=== PATIENT | female | born 1950 | race Caucasian/White ===

== ENCOUNTER 2016-07-06 05:44 | Inpatient (IN) ==
--- NOTE | 2016-06-26 14:30 | EKG Report ---
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
--- NOTE | 2016-06-26 14:31 | XRay Report ---
XR chest 2V Indication: Respiratory preoperative evaluation Comparison: One June 2015 Findings: The heart and mediastinum are normal in size and configuration. The pulmonary vascularity is normal in caliber. No lung infiltrates, effusions, pneumothorax or other abnormality is demonstrated. Polypoid densities project over the gastric air bubble. Impression: No acute findings or significant changes. PROCEDURE INTERPRETED AT [facility] DEPARTMENT OF RADIOLOGY Final Report Signed by: Dr. Eros Black
[2016-06-26 14:54] LABS: Basophils # 0.1 10*3/uL (0.0-0.2); Basophils % 0.6 % (0.0-0.8); Eosinophils # 0.2 10*3/uL (0.0-0.87); Eosinophils % 2.1 % (0.00-10.9); Hematocrit 37.3 VOL% (35.7-47.0); Hemoglobin 12.4 GM/DL (12.0-16.0); Immature Granulocytes % 0.2 %; Immature Granulocytes Absolute 0.02 #; Lymphocytes # 1.6 10*3/uL (1.4-4.0); Lymphocytes % 19.3 % (21.3-54.2); Mean Corpuscular HGB Conc 33.2 GM/DL (32-36); Mean Corpuscular Hemoglobin 27 PG (27-34); Mean Corpuscular Volume 80.9 FL (87-102); Mean Platelet Volume 9.9 FL (9.6-12.0); Monocytes # 0.7 10*3/uL (0.11-0.8); Monocytes % 8.6 % (1.7-12.7); Neutrophils # 5.6 10*3/uL (1.4-7.4); Neutrophils % 69.2 % (38.7-73.9); Platelet Count 348 T/CUMM (130-400); Red Blood Count 4.61 MC/CUMM (3.8-5.5); Red Cell Distribution Width 13.9 % (9.3-17.3); White Blood Count 8.1 T/CUMM (4-12)
[2016-06-26 15:03] LABS: Apearance,Urine Slightly Hazy (Clear); Bacteria,Urine Occasional /HPF (Few); Bilirubin,Urine Negative (Negative); Blood, Urine Negative (Negative); Glucose,Urine (UA) Negative (Negative); Ketones,Urine Negative (Negative); Nitrite,Urine Negative (Negative); Protein,Urine Negative; RBC,Urine <1 /HPF (0-4); Squamous Epithelial Cell,Urine Occasional /HPF (0-10); Urine Color Yellow (Yellow); Urine Specific Gravity 1.008 (1.001-1.035); Urine Urobilinogen < 2.0 EU/DL (0.2-1.0); WBC,Urine 1 /HPF (0-6)
[2016-06-26 15:04] LABS: PT Patient Result 10.8 SECS; Partial Thromboplastin Time 35.5 SECS (0-40)
[2016-06-26 15:09] LABS: Alanine Aminotransferase 19 U/L (13-56); Albumin 3.6 G/DL (3.4-5.0); Alkaline Phosphatase 132 U/L (45-117); Aspartate Amino Transferase 20 U/L (0-37); Bilirubin,Total < 0.39 MG/DL (0.2-1.0); Blood Urea Nitrogen 21 MG/DL (7-18); Glucose 109 MG/DL (74-106); Osmolality,Calculated 278.7 MOS/KG (273-304); Potassium 3.9 MMOL/L (3.5-5.1); Sodium 138 MMOL/L (136-145); Total Protein 7.4 G/DL (6.4-8.3)
[2016-07-06] MEDS ORDERED: VANCOMYCIN INJ 1,000 MG in SODIUM CHLORIDE 0.9% 250 ML IV ONE (06:00)
[2016-07-06] MEDS ORDERED: LORazepam 1 MG TABLET PO ONE (06:00)
[2016-07-06] MEDS ORDERED: FAMOTIDINE 20 MG TABLET PO ONE (06:00)
[2016-07-06] MEDS ORDERED: FAMOTIDINE 20 MG TABLET ONE (06:22)
[2016-07-06] MEDS ORDERED: LORazepam 1 MG TABLET ONE (06:22)
[2016-07-06] MEDS ORDERED: VANCOMYCIN 1,000 MG VIAL ONE ×2 (06:33→08:01)
[2016-07-06] MEDS ORDERED: ceFAZolin 1,000 MG VIAL ONE (06:33)
[2016-07-06] MEDS ORDERED: SODIUM CHLORIDE 0.9% 100 ML IV ONE (06:33)
[2016-07-06] MEDS ORDERED: BACITRACIN OINT 0.9 GM PACK TOP ONE (06:43)
--- NOTE | 2016-07-06 06:58 | History and Physical Update ---
History and Physical Update - History and Physical H&P was reviewed, the patient examined and there: are no changes in the patients condition since last H&P was completed.
[2016-07-06] MEDS ORDERED: TRANEXAMIC ACID 1,000 MG/10 ML VIAL IV ONE (06:59)
[2016-07-06] MEDS ORDERED: MORPHINE 10 MG/10 ML VIAL ONE (07:07)
[2016-07-06] MEDS ORDERED: PROPOFOL 200 MG/20 ML VIAL IV ONE (07:15)
[2016-07-06] MEDS ORDERED: PHENYLEPHRINE 1 MG/10 ML SYRINGE IV ONE (07:15)
[2016-07-06] MEDS ORDERED: LIDOCAINE 1% 5 ML VIAL ONE (07:15)
[2016-07-06] MEDS ORDERED: MAGNESIUM HYDROXIDE SUSP 30 ML UDCUP PO PRN (07:41)
[2016-07-06] MEDS ORDERED: MORPHINE 2 MG/1 ML SYRINGE IV PRN ×2 (07:41)
[2016-07-06] MEDS ORDERED: oxyCODONE IR 5 MG TABLET PO PRN ×2 (07:41)
[2016-07-06] MEDS ORDERED: ZALEPLON 5 MG CAPSULE PO PRN (07:41)
[2016-07-06] MEDS ORDERED: diphenhydrAMINE CAP 25 MG CAPSULE PO PRN (07:41)
--- NOTE | 2016-07-06 08:55 | Operative Note ---
Date of procedure: 07/06/16 Procedure: DIAGNOSIS: Right knee secondary arthrosis. Rheumatoid arthritis. PROCEDURE: Left total knee arthroplasty (cpt #77746) SURGEON: Keegan ANESTHESIA: Spinal with a postoperative femoral nerve block PROCEDURE and FINDINGS: After adequate was induced, the patient's knee was prepped and draped in the usual sterile fashion. The limb was exsanguinated with Esmarch. Tourniquet was inflated to 300 mmHg. A median parapatellar approach was made. Femur was cut using an intramedullary guide and a 4 in 1 cutting jig in 5 degrees of valgus. ACL and menisci were excised. Tibia was cut using intramedullary guide. Patella was cut using freehand technique. Components were trialed. Tibial fin was prepared. Components are cemented in place using Palacos cement and modern cementing techniques. Cement was removed. A 1/8 inch Hemovac drain was placed. The knee was well-balanced and full range of motion with central tracking patella. Deep layers closed with 0-0 Vicryl. Superficial layers were closed with 2-0 and 3-0 Vicryl. Skin was approximated with staci. Bacitracin and a sterile dressing was applied. Patient was transferred to recovery. A postoperative femoral nerve block is anticipated. COMPONENTS: The Nyla Persona system was used. 6 CR narrow femur, D natural tibia, 10 mm liner, 29 mm patella TOURNIQUET TIME: 40 minutes Surgeon / Physician: Kiel Allison Jr. Results - Labs CBC & BMP: 06/26/16 14:35 06/26/16 14:35 Discharge Plan - Discharge Medications No Action Flaxseed Oil 1,000 mg PO BID Multivitamin [Multivitamin Chew Tab] 1 tablet PO BID Lisinopril/Hydrochlorothiazide [Lisinopril-Hctz 10-12.5 mg Tab] 1 each PO DAILY Esomeprazole Magnesium [Nexium] 40 mg PO DAILY Minocycline [Minocin] 100 mg PO BID Zinc 50 mg PO DAILY Ascorbic Acid Tab [Vitamin C Tab] 1,000 mg PO DAILY Aspirin [Ecotrin] 81 mg PO DAILY - Follow Up or Referral - Forms/Instructions
[2016-07-06] MEDS ORDERED: ROPIVACAINE 0.5% 30 ML VIAL ONE (09:07)
[2016-07-06] MEDS ORDERED: MIDAZOLAM 2 MG/2 ML VIAL ONE (09:31)
[2016-07-06] MEDS ORDERED: fentaNYL 100 MCG/2 ML VIAL ONE (09:31)
[2016-07-06] MEDS ORDERED: KETAMINE 500 MG/10 ML VIAL ONE (09:32)
--- NOTE | 2016-07-06 09:52 | XRay Report ---
Exam: XR knee 2V LT Date: 07/06/2016 7:43 AM Comparison: None Indication: Left total knee replacement Technique:[AP and lateral left knee] Findings: Recent satisfactory left total knee replacement with postoperative findings. No fracture or dislocation. Impression: Recent satisfactory left total knee replacement. Evidence of prior right total knee replacement. PROCEDURE INTERPRETED AT [facility] DEPARTMENT OF RADIOLOGY Final Report Signed by: Dr. Simran Mohan
[2016-07-06] MEDS: LISINOPRIL/HCTZ 10-12.5 MG TABLET PO SCH (10:52)
[2016-07-06] MEDS: MINOCYCLINE 100 MG CAPSULE PO SCH ×2 (12:42→21:11)
[2016-07-06] MEDS: KETOROLAC 30 MG/1 ML VIAL IV SCH ×2 (12:42→15:14)
[2016-07-06] MEDS: ZINC GLUCONATE 50 MG TABLET PO SCH (12:42)
[2016-07-06] MEDS: ASCORBIC ACID 500 MG TABLET PO SCH (12:42)
[2016-07-06] MEDS: DEXTROSE 5% NACL 0.45% 1,000 ML IV SCH ×2 (12:42→18:47)
[2016-07-06] MEDS: ACETAMINOPHEN 500 MG TABLET PO SCH ×3 (12:43→23:48)
[2016-07-06] MEDS: DOCUSATE SODIUM 100 MG CAPSULE PO SCH ×2 (12:43→21:12)
[2016-07-06] MEDS: PANTOPRAZOLE 40 MG TABLET PO SCH (12:43)
[2016-07-06] MEDS: MULTIVITAMIN (CENTRUM) TABLET PO SCH ×2 (12:43→21:11)
--- NOTE | 2016-07-06 13:08 | Anesthesia ---
Anesthesia Post OP - Post Ansesthetic Evaluation Patient seen in post op: Yes Resp: within normal limits CV: within normal limits Mental: within normal limits Temp: within normal limits Ttme-Km-Kvpeddtmw: within normal limits Nausea and Vomiting: within normal limits Pain: within normal limits
[2016-07-06] MEDS: ONDANSETRON 4 MG/2 ML VIAL IV PRN (15:14)
--- NOTE | 2016-07-06 15:37 | Orthopedic Progress Note ---
Orthopedics - Subjective Interval history: Complaining that the Toradol made her nauseous and her nose itch. She would like to stop it. Neurovascular okay. Dressing dry. Stop Toradol. Hold on CPM. Otherwise per protocol. Exam - Constitutional Vitals: Period Temp Pulse Resp BP Sys/Perez Pulse Ox Last 24 Hr 97.9 F-99.0 F 57-65 16-16 93-136/56-76 98-100 Results - Labs CBC & BMP: 06/26/16 14:35 06/26/16 14:35
[2016-07-07] MEDS: FONDAPARINUX 2.5 MG/0.5 ML SYRINGE SUBCUT SCH (02:49)
[2016-07-07 05:06] LABS: Basophils % 0.4 % (0.0-0.8); Eosinophils # 0.2 10*3/uL (0.0-0.87); Eosinophils % 2.8 % (0.00-10.9); Hematocrit 28.2 VOL% (35.7-47.0); Hemoglobin 9.3 GM/DL (12.0-16.0); Immature Granulocytes % 0.4 %; Immature Granulocytes Absolute 0.03 #; Lymphocytes # 1.5 10*3/uL (1.4-4.0); Mean Corpuscular Hemoglobin 27 PG (27-34); Mean Platelet Volume 10.8 FL (9.6-12.0); Monocytes % 13.8 % (1.7-12.7); Neutrophils # 4.7 10*3/uL (1.4-7.4); Neutrophils % 62.6 % (38.7-73.9); Platelet Count 246 T/CUMM (130-400); Red Blood Count 3.44 MC/CUMM (3.8-5.5); White Blood Count 7.5 T/CUMM (4-12)
[2016-07-07 05:31] LABS: Potassium 4.1 MMOL/L (3.5-5.1)
[2016-07-07] MEDS: ACETAMINOPHEN 500 MG TABLET PO SCH (06:20)
[2016-07-07] MEDS ORDERED: ACETAMINOPHEN 500 MG TABLET PO PRN (07:09)
--- NOTE | 2016-07-07 07:42 | Orthopedic Progress Note ---
Orthopedics - Subjective Interval history: Would like to minimize narcotics and avoid hydrocodone. Dressing dry. nv ok. Mobilize with therapy. Exam - Constitutional Vitals: Period Temp Pulse Resp BP Sys/Perez Pulse Ox Last 24 Hr 96.7 F-99.0 F 56-82 16-19 93-117/56-68 95-100 Results - Labs CBC & BMP: 07/07/16 03:40 07/07/16 03:40
[2016-07-07] MEDS: DEXTROSE 5% NACL 0.45% 1,000 ML IV SCH (07:46)
[2016-07-07] MEDS: DOCUSATE SODIUM 100 MG CAPSULE PO SCH ×2 (09:53→20:32)
[2016-07-07] MEDS: MULTIVITAMIN (CENTRUM) TABLET PO SCH ×2 (09:53→20:49)
[2016-07-07] MEDS: PANTOPRAZOLE 40 MG TABLET PO SCH (09:53)
[2016-07-07] MEDS: LISINOPRIL/HCTZ 10-12.5 MG TABLET PO SCH (09:53)
[2016-07-07] MEDS: ASCORBIC ACID 500 MG TABLET PO SCH (09:53)
[2016-07-07] MEDS: ZINC GLUCONATE 50 MG TABLET PO SCH (09:53)
[2016-07-07] MEDS: MINOCYCLINE 100 MG CAPSULE PO SCH ×2 (09:54→20:12)
[2016-07-07] MEDS: ONDANSETRON 4 MG/2 ML VIAL IV PRN (23:36)
[2016-07-08] MEDS: FONDAPARINUX 2.5 MG/0.5 ML SYRINGE SUBCUT SCH (02:18)
[2016-07-08 04:44] LABS: Basophils % 0.3 % (0.0-0.8); Eosinophils % 0.2 % (0.00-10.9); Hematocrit 29.1 VOL% (35.7-47.0); Hemoglobin 9.9 GM/DL (12.0-16.0); Immature Granulocytes % 0.6 %; Immature Granulocytes Absolute 0.06 #; Mean Corpuscular Hemoglobin 27 PG (27-34); Mean Corpuscular Volume 78.4 FL (87-102); Mean Platelet Volume 10.6 FL (9.6-12.0); Monocytes # 0.8 10*3/uL (0.11-0.8); Monocytes % 7.3 % (1.7-12.7); Neutrophils % 82.6 % (38.7-73.9); Platelet Count 276 T/CUMM (130-400); Red Blood Count 3.71 MC/CUMM (3.8-5.5); Red Cell Distribution Width 13.8 % (9.3-17.3); White Blood Count 10.8 T/CUMM (4-12)
[2016-07-08] MEDS: ONDANSETRON 4 MG/2 ML VIAL IV PRN (05:38)
--- NOTE | 2016-07-08 07:24 | Orthopedic Progress Note ---
Orthopedics - Subjective Interval history: Mrs. Orantes is still having pain issues. She would like to just try Percocet. She states that she has had problems with oxycodone IR causing nausea. Patient states that even though she has a sulfa allergy she can take Celebrex. Dressing is dry. She is neurovascularly unchanged. Plan: Start CPM. Change to Percocet. Add Celebrex. Plan home tomorrow. Exam - Constitutional Vitals: Period Temp Pulse Resp BP Sys/Perez Pulse Ox Last 24 Hr 97.1 F-98.8 F 61-77 12-18 104-130/59-73 97-100 Results - Labs CBC & BMP: 07/08/16 03:36 07/07/16 03:40
--- NOTE | 2016-07-08 07:49 | Discharge Summary ---
Hospital Course - Hospital Course Hospital Course: Mrs. Orantes was admitted after undergoing an uncomplicated left total knee replacement. She received perioperative DVT and antimicrobial prophylaxis. She received physical therapy. She was discharged home postoperative day #3 in stable condition. Patient did have issues with nausea and pain medicines. Several different pain control regimens were tried. wound dry. nv ok. Discharge Plan - Discharge Data Disposition: Home Health Service Discharge Diet: advance to your usual diet Weight Bearing at Discharge: weight bear as tolerated Driving: not until seen by doctor - Discharge Medications No Action Flaxseed Oil 1,000 mg PO BID Multivitamin [Multivitamin Chew Tab] 1 tablet PO BID Lisinopril/Hydrochlorothiazide [Lisinopril-Hctz 10-12.5 mg Tab] 1 each PO DAILY Esomeprazole Magnesium [Nexium] 40 mg PO DAILY Minocycline [Minocin] 100 mg PO BID Zinc 50 mg PO DAILY Ascorbic Acid Tab [Vitamin C Tab] 1,000 mg PO DAILY Aspirin [Ecotrin] 81 mg PO DAILY - Follow Up or Referral - Forms/Instructions Additional Discharge Instructions: Daily dry dressing changes. Weightbearing as tolerated. CPM for 3 weeks. Arrange walker and bedside commode for home use. Wear BONNIE hose for 1 month. Discontinue staci and Steri-Strip wound on July 20, 2016. Follow-up appointment in 3 weeks. Take regular aspirin 325 mg by mouth for 3 weeks. Resume baby aspirin then. Exam - Constitutional Vitals: Period Temp Pulse Resp BP Sys/Perez Pulse Ox Last 24 Hr 97.7 F-98.8 F 62-77 18-18 104-130/59-73 97-100 Discharge Results Procedures and tests throughout hospitalization: Pending Orders 07/09/16 04:00 Comp Blood Count Auto Diff IN AM Labs on day of discharge: Labs from last 24 hours 07/08/16 03:36 WBC 10.8 D RBC 3.71 L Hgb 9.9 L Hct 29.1 L MCV 78.4 L MCH 27 MCHC 34.0 RDW 13.8 Plt Count 276 MPV 10.6 Neut % (Auto) 82.6 H Lymph % (Auto) 9.0 L [place] % (Auto) 7.3 Eos % (Auto) 0.2 Baso % (Auto) 0.3 Neut # (Auto) 9.0 H Lymph # (Auto) 1.0 L [place] # (Auto) 0.8 Eos # (Auto) 0.0 Baso # (Auto) 0.0 Immature Gran % 0.6 Nucleated RBC % 0.0 Immature Gran # 0.06 Nucleated RBCs # 0.00 DS: Provider Date of admission: 07/06/16 05:44 Primary care physician: Tory Christopher Attending physician on admission: Kiel Allison Jr., Consults: 07/06/16 07:41 Consult to Case Mgmt/Social Srvs [CONS] Routine Reason for Case Mgmt/Social Srvs: Rehab Home Health Equipment Consult Comment: Bedside Commode, CPM, Walker Consult to Occupational Therapy [CONS] Routine Reason for Occupational Therapy: Evaluate and Treat Consult Comment: ADL's Consult to Physical Therapy [CONS] Routine Reason for Physical Therapy: Evaluate and Treat Gait Training Start Therapy: Today 07/06/16 10:42 Consult to Pharmacy [CONS] Routine Reason for Pharmacy Consult: Adjust Meds Renal Funct 07/06/16 10:53 Consult to Case Mgmt/Social Srvs [CONS] Routine Reason for Case Mgmt/Social Srvs: Equipment Consult Comment: CPM 07/06/16 10:57 Consult to Case Mgmt/Social Srvs [CONS] Routine Reason for Case Mgmt/Social Srvs: Equipment Consult Comment: BSC 07/06/16 12:47 Consult to Case Mgmt/Social Srvs [CONS] Routine Reason for Case Mgmt/Social Srvs: Equipment Consult Comment: walker Discharging clinician: Kiel Allison Jr., Expected date of discharge: 07/09/16
[2016-07-08] MEDS ORDERED: oxyCODONE/ACETAMINOPHEN 5-325 MG TABLET PO PRN (09:24)
[2016-07-08] MEDS: PANTOPRAZOLE 40 MG TABLET PO SCH (09:42)
[2016-07-08] MEDS: DOCUSATE SODIUM 100 MG CAPSULE PO SCH ×2 (09:42→21:04)
[2016-07-08] MEDS: MULTIVITAMIN (CENTRUM) TABLET PO SCH ×2 (09:42→21:04)
[2016-07-08] MEDS: LISINOPRIL/HCTZ 10-12.5 MG TABLET PO SCH (09:42)
[2016-07-08] MEDS: CELECOXIB 200 MG CAPSULE PO SCH (09:42)
[2016-07-08] MEDS: MINOCYCLINE 100 MG CAPSULE PO SCH ×2 (09:42→21:04)
[2016-07-08] MEDS: ASCORBIC ACID 500 MG TABLET PO SCH (09:42)
[2016-07-08] MEDS: ZINC GLUCONATE 50 MG TABLET PO SCH (09:43)
[2016-07-08] MEDS: oxyCODONE/ACETAMINOPHEN 5-325 MG TABLET PO PRN (18:19)
[2016-07-09] MEDS: oxyCODONE/ACETAMINOPHEN 5-325 MG TABLET PO PRN ×2 (00:06→08:15)
[2016-07-09] MEDS: FONDAPARINUX 2.5 MG/0.5 ML SYRINGE SUBCUT SCH (01:38)
[2016-07-09 06:20] LABS: Basophils % 0.6 % (0.0-0.8); Eosinophils # 0.2 10*3/uL (0.0-0.87); Hematocrit 28.9 VOL% (35.7-47.0); Hemoglobin 9.6 GM/DL (12.0-16.0); Immature Granulocytes % 0.3 %; Immature Granulocytes Absolute 0.02 #; Lymphocytes # 1.9 10*3/uL (1.4-4.0); Lymphocytes % 29.2 % (21.3-54.2); Mean Corpuscular HGB Conc 33.2 GM/DL (32-36); Mean Corpuscular Hemoglobin 27 PG (27-34); Mean Platelet Volume 10.1 FL (9.6-12.0); Monocytes # 0.8 10*3/uL (0.11-0.8); Monocytes % 12.2 % (1.7-12.7); Neutrophils # 3.6 10*3/uL (1.4-7.4); Neutrophils % 54.7 % (38.7-73.9); Platelet Count 269 T/CUMM (130-400); Red Blood Count 3.57 MC/CUMM (3.8-5.5); White Blood Count 6.6 T/CUMM (4-12)
[2016-07-09] MEDS: MINOCYCLINE 100 MG CAPSULE PO SCH (08:14)
[2016-07-09] MEDS: MULTIVITAMIN (CENTRUM) TABLET PO SCH (08:14)
[2016-07-09] MEDS: DOCUSATE SODIUM 100 MG CAPSULE PO SCH (08:14)
[2016-07-09] MEDS: CELECOXIB 200 MG CAPSULE PO SCH (08:14)
[2016-07-09] MEDS: ASCORBIC ACID 500 MG TABLET PO SCH (08:15)
[2016-07-09] MEDS: ZINC GLUCONATE 50 MG TABLET PO SCH (08:15)
[2016-07-09] MEDS: LISINOPRIL/HCTZ 10-12.5 MG TABLET PO SCH (08:15)
[2016-07-09] MEDS: PANTOPRAZOLE 40 MG TABLET PO SCH (08:15)
--- NOTE | 2016-07-09 10:17 | Pathology Report from [facility] ---
ACCESSION # : [id number] PATIENT NAME : Candi Gold ORDERING DR : JENNIFER STEELE MD CLINICAL HX: LT knee osteoarthritis POST-OP DX: Same SPECIMEN INFO: LT knee bone & tissue GROSS DESCRIPTION: Received in formalin labeled "CANDI GOLD" consists of fragments of bone, cartilage and tissue measuring 13.5 x 11.6 cm. The articular surfaces are clemente figueroa and focally degenerative with cartilage lipping and areas of bone eburnation measuring up to 1 cm. 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 DIAGNOSIS FOR CANDI GOLD: LEFT KNEE BONE & TISSUE, TOTAL REPLACEMENT: Osteoarthritis. SERVICE DATE: 07/06/2016 REPORT DATE: 07/09/2016 PATHOLOGIST: Queenie Martell M.D. [facility]
[2016-07-09 13:00] VITALS: BP 99/50
== END 2016-07-09 12:40 | disposition home or self-care (01) | DRG 470 ==
LOC: N.SDSINP 05:44 → N.3E 10:17
PROVIDERS: ADMIT Orthopaedic Surgery; ATTEND Orthopaedic Surgery

== ENCOUNTER 2019-05-29 14:37 | Inpatient (IN) ==
[2019-05-29] MEDS ORDERED: ASPIRIN 325 MG TABLET PO STA (15:09)
[2019-05-29 16:22] LABS: Basophils # 0.1 10*3/uL (0.0-0.2); Basophils % 0.8 % (0.0-0.8); Eosinophils # 0.1 10*3/uL (0.0-0.87); Eosinophils % 1.8 % (0.00-10.9); Hematocrit 20.2 VOL% (35.7-47.0); Immature Granulocytes % 0.5 %; Immature Granulocytes Absolute 0.04 #; Lymphocytes % 26.3 % (21.3-54.2); Mean Corpuscular HGB Conc 27.2 GM/DL (32-36); Mean Corpuscular Volume 69.7 FL (87-102); Mean Platelet Volume 11.1 FL (9.6-12.0); Monocytes % 11.2 % (1.7-12.7); Neutrophils % 59.4 % (38.7-73.9); Platelet Count 387 T/CUMM (130-400); Red Cell Distribution Width 18.6 % (9.3-17.3); White Blood Count 7.6 T/CUMM (4-12)
[2019-05-29 16:28] LABS: Hemoglobin 5.5 GM/DL (12.0-16.0)
[2019-05-29 16:29] LABS: Apearance,Urine Slightly Hazy (Clear); Bacteria,Urine Occasional /HPF (Few); Bilirubin,Urine Negative (Negative); Blood, Urine Negative (Negative); Glucose,Urine (UA) Negative (Negative); Ketones,Urine Negative (Negative); Nitrite,Urine Negative (Negative); Protein,Urine Negative; RBC,Urine 2 /HPF (0-4); Squamous Epithelial Cell,Urine Occasional /HPF (0-10); Urine Color Yellow (Yellow); Urine Urobilinogen < 2.0 EU/DL (0.2-1.0); WBC,Urine 22 /HPF (0-6)
[2019-05-29 16:36] LABS: Calcium 8.7 MG/DL (8.5-10.1); Osmolality,Calculated 280.4 MOS/KG (273-304)
[2019-05-29 16:44] LABS: Elliptocytes Few; Hypochromasia 2+; Poikilocytosis 1+; Schistocytes 1+; Target Cells 1+
[2019-05-29 16:45] LABS: Polychromasia Slight
[2019-05-29 16:46] LABS: Anisocytosis 2+; Microcytosis 2+; Platelet Estimate Normal
[2019-05-29] MEDS ORDERED: cefTRIAXone 1,000 MG in SODIUM CHLORIDE 0.9% 100 ML IV STA (17:11)
[2019-05-29] MEDS ORDERED: POTASSIUM CHLORIDE 20 MEQ TABLET PO STA (17:11)
[2019-05-29 17:14] LABS: Basophils % 0.4 % (0.0-0.8); Eosinophils # 0.1 10*3/uL (0.0-0.87); Eosinophils % 1.6 % (0.00-10.9); Hematocrit 20.9 VOL% (35.7-47.0); Immature Granulocytes % 0.4 %; Immature Granulocytes Absolute 0.04 #; Lymphocytes % 22.8 % (21.3-54.2); Mean Corpuscular HGB Conc 27.3 GM/DL (32-36); Mean Corpuscular Volume 70.1 FL (87-102); Mean Platelet Volume 11.3 FL (9.6-12.0); Neutrophils % 62.8 % (38.7-73.9); Platelet Count 404 T/CUMM (130-400); Red Blood Count 2.98 MC/CUMM (3.8-5.5); Red Cell Distribution Width 18.6 % (9.3-17.3); White Blood Count 8.9 T/CUMM (4-12)
[2019-05-29 17:18] LABS: Hemoglobin 5.7 GM/DL (12.0-16.0)
[2019-05-29] MEDS ORDERED: hydrALAZINE 20 MG/1 ML VIAL IV PRN (18:01)
[2019-05-29] MEDS ORDERED: SODIUM CHLORIDE 0.9% 1,000 ML IV PRN (18:05)
[2019-05-29] MEDS ORDERED: MORPHINE 4 MG/1 ML VIAL IV PRN (18:17)
[2019-05-29] MEDS ORDERED: DOCUSATE SODIUM 100 MG CAPSULE PO PRN (18:17)
[2019-05-29] MEDS ORDERED: ZALEPLON 5 MG CAPSULE PO PRN (18:17)
[2019-05-29] MEDS ORDERED: ACETAMINOPHEN 325 MG TABLET PO PRN (18:17)
[2019-05-29] MEDS ORDERED: guaiFENesin/DM ER 600-30 MG TABLET PO PRN (18:17)
[2019-05-29] MEDS ORDERED: NICOTINE 21 MG/24 HR PATCH TRANSDERM PRN (18:17)
[2019-05-29] MEDS ORDERED: ONDANSETRON 4 MG/2 ML VIAL IV PRN (18:17)
[2019-05-29] MEDS ORDERED: ALBUTEROL 2.5 MG/3 ML NEB RESP TX PRN (18:25)
[2019-05-29 18:43] LABS: Basophils # 0.1 10*3/uL (0.0-0.2); Basophils % 0.6 % (0.0-0.8); Eosinophils # 0.1 10*3/uL (0.0-0.87); Eosinophils % 1.4 % (0.00-10.9); Hematocrit 19.3 VOL% (35.7-47.0); Immature Granulocytes % 0.6 %; Immature Granulocytes Absolute 0.05 #; Lymphocytes # 2.1 10*3/uL (1.4-4.0); Lymphocytes % 24.2 % (21.3-54.2); Mean Corpuscular HGB Conc 27.5 GM/DL (32-36); Mean Corpuscular Volume 69.2 FL (87-102); Mean Platelet Volume 10.7 FL (9.6-12.0); Monocytes % 10.2 % (1.7-12.7); Platelet Count 376 T/CUMM (130-400); Red Blood Count 2.79 MC/CUMM (3.8-5.5); Red Cell Distribution Width 18.7 % (9.3-17.3); White Blood Count 8.5 T/CUMM (4-12)
[2019-05-29 18:46] LABS: Hemoglobin 5.3 GM/DL (12.0-16.0)
[2019-05-29 19:55] LABS: Sedimentation Rate-Westergren 80 MM/HR (0-30)
[2019-05-29] MEDS: FAMOTIDINE 20 MG/2 ML VIAL IV SCH (22:25)
[2019-05-30 06:55] LABS: Basophils # 0.1 10*3/uL (0.0-0.2); Basophils % 0.7 % (0.0-0.8); Eosinophils # 0.2 10*3/uL (0.0-0.87); Eosinophils % 1.8 % (0.00-10.9); Hematocrit 28.4 VOL% (35.7-47.0); Immature Granulocytes % 0.5 %; Immature Granulocytes Absolute 0.04 #; Lymphocytes # 1.6 10*3/uL (1.4-4.0); Lymphocytes % 19.1 % (21.3-54.2); Mean Corpuscular HGB Conc 30.6 GM/DL (32-36); Mean Corpuscular Volume 75.1 FL (87-102); Mean Platelet Volume 11.1 FL (9.6-12.0); Monocytes % 11.2 % (1.7-12.7); Neutrophils % 66.7 % (38.7-73.9); Platelet Count 351 T/CUMM (130-400); Red Blood Count 3.78 MC/CUMM (3.8-5.5); Red Cell Distribution Width 21.2 % (9.3-17.3); White Blood Count 8.3 T/CUMM (4-12)
[2019-05-30 07:05] LABS: Hemoglobin 8.7 GM/DL (12.0-16.0)
[2019-05-30 07:20] LABS: Bilirubin,Total 0.8 MG/DL (0.2-1.0); Calcium 8.7 MG/DL (8.5-10.1); Osmolality,Calculated 280.3 MOS/KG (273-304)
[2019-05-30] MEDS ORDERED: PANTOPRAZOLE 40 MG VIAL IV SCH (09:00)
[2019-05-30] MEDS ORDERED: cefTRIAXone 1,000 MG in SYRINGE 1 EACH IV SCH (09:00)
[2019-05-30] MEDS ORDERED: POTASSIUM CHLORIDE 20 MEQ TABLET PO SCH (09:00)
[2019-05-30] MEDS ORDERED: IRON SUCROSE 200 MG in SODIUM CHLORIDE 0.9% 100 ML IV ONE (09:00)
[2019-05-30] MEDS ORDERED: amLODIPine 10 MG TABLET PO SCH (09:00)
[2019-05-30] MEDS: FAMOTIDINE 20 MG/2 ML VIAL IV SCH (09:26)
[2019-05-30 10:38] LABS: Hematocrit 29.5 VOL% (35.7-47.0); Hemoglobin 8.9 GM/DL (12.0-16.0)
[2019-05-30 12:33] VITALS: BP 148/70
[2019-06-01 08:58] LABS: Hemoglobin A1 (Alkaline) 97.7 % (96.5-98.5); Hemoglobin A2 (Alkaline) 2.3 % (1.5-3.5)
[2019-06-01 12:52] LABS: Folate > 24.0 NG/ML (5.4-24.0); Vitamin B12 867 PG/ML (211-911)
== END 2019-05-30 15:15 | disposition home or self-care (01) | DRG 812 ==
LOC: N.ED 14:37 → N.EDINP 18:17 → N.TELES 18:47
PROVIDERS: ADMIT Emergency Medicine; ATTEND Emergency Medicine

== ENCOUNTER 2021-11-19 13:00 | Inpatient (IN) ==
[2021-11-19] MEDS ORDERED: SODIUM CHLORIDE 0.9% 1,000 ML IV STA (14:23)
[2021-11-19 15:20] LABS: Basophils % 0.1 % (0.0-0.8); Eosinophils % 0.1 % (0.00-10.9); Hematocrit 31.7 VOL% (35.7-47.0); Hemoglobin 10.8 GM/DL (12.0-16.0); Immature Granulocytes % 0.6 %; Immature Granulocytes Absolute 0.04 #; Lymphocytes # 0.8 10*3/uL (1.4-4.0); Lymphocytes % 11.1 % (21.3-54.2); Mean Corpuscular HGB Conc 34.1 GM/DL (32-36); Mean Corpuscular Volume 99.7 FL (87-102); Mean Platelet Volume 11.8 FL (9.6-12.0); Monocytes # 0.2 10*3/uL (0.11-0.8); Monocytes % 2.8 % (1.7-12.7); Neutrophils % 85.3 % (38.7-73.9); Platelet Count 186 T/CUMM (130-400); Red Blood Count 3.18 MC/CUMM (3.8-5.5); Red Cell Distribution Width 25.3 % (9.3-17.3); White Blood Count 6.9 T/CUMM (4-12)
[2021-11-19 15:30] LABS: PT Patient Result 20.8 SECS (10.1-12.1)
[2021-11-19 15:47] LABS: Band Neutrophils 9 % (0-10); Lymphocytes 12 % (20-55); Polychromasia Slight
[2021-11-19 15:48] LABS: Anisocytosis 1+; Burr Cells Few; Macrocytosis Slight; Ovalocytes Slight
[2021-11-19 15:51] LABS: Platelet Estimate Normal
[2021-11-19 15:52] LABS: Albumin 1.7 G/DL (3.4-5.0); Osmolality,Calculated 282.1 MOS/KG (273-304); Potassium 3.3 MMOL/L (3.5-5.1); Total Protein 5.2 G/DL (6.4-8.2)
[2021-11-19 15:53] LABS: Total Cells Counted 100
[2021-11-19 15:54] LABS: Bilirubin,Total 23.6 MG/DL (0.20-1.00)
[2021-11-19] MEDS ORDERED: ONDANSETRON 4 MG/2 ML VIAL IV STA (16:23)
[2021-11-19] MEDS ORDERED: HYDROmorphone 1 MG/1 ML SYRINGE IV STA (16:23)
[2021-11-19] MEDS ORDERED: DEXTROSE 50% 25 GM/50 ML VIAL IV STA (16:40)
[2021-11-19] MEDS ORDERED: DEXTROSE 50% 25 GM/50 ML SYRINGE IV STA (16:44)
[2021-11-19] MEDS ORDERED: PROMETHAZINE 25 MG/1 ML VIAL IM PRN (16:58)
[2021-11-19] MEDS ORDERED: DEXTROSE 10% 250 ML BAG IV PRN (16:58)
[2021-11-19] MEDS ORDERED: ONDANSETRON 4 MG/2 ML VIAL IV PRN (16:58)
[2021-11-19] MEDS ORDERED: SIMETHICONE CHEW 125 MG TABLET PO PRN (16:58)
[2021-11-19] MEDS ORDERED: GLUCAGON 1 MG VIAL IM PRN (16:58)
[2021-11-19] MEDS ORDERED: POTASSIUM CHLORIDE RIDER 10 MEQ/100 ML PREMIX IV PRN (17:02)
[2021-11-19] MEDS ORDERED: HYDROmorphone 1 MG/1 ML SYRINGE IV PRN (17:03)
[2021-11-19] MEDS ORDERED: methylPREDNISolone SOD SUC 125 MG/2 ML VIAL IV SCH (17:30)
[2021-11-19 17:49] LABS: Thyroid Stimulating Hormone 0.624 uIU/ml (0.358-3.74)
[2021-11-19] MEDS ORDERED: POTASSIUM CHLORIDE 20 MEQ TABLET PO ONE (18:23)
[2021-11-19] MEDS ORDERED: MAGNESIUM SULF RIDER 2 GM/50 ML PREMIX IV ONE (18:45)
[2021-11-19 19:12] LABS: Folate 17.23 NG/ML (5.38-24.0); Vitamin B12 > 2000 PG/ML (211-911)
[2021-11-19] MEDS: FUROSEMIDE 40 MG/4 ML VIAL IV SCH (19:14)
[2021-11-19] MEDS ORDERED: ACETAMINOPHEN 650 MG SUPP RECTAL PRN (19:19)
[2021-11-19] MEDS: fentaNYL 12 MCG/HR PATCH TRANSDERM SCH ×2 (19:20→22:16)
[2021-11-19] MEDS: DOCUSATE SODIUM 100 MG CAPSULE PO SCH (20:27)
[2021-11-19] MEDS: ALBUMIN 25% 12.5 GM/50 ML VIAL IV SCH (20:59)
[2021-11-19] MEDS: PIPERACILLIN/TAZOBACTAM 3,375 MG in SODIUM CHLORIDE 0.9% 100 ML IV SCH (21:49)
[2021-11-20] MEDS: ALBUMIN 25% 12.5 GM/50 ML VIAL IV SCH ×2 (03:14→16:26)
[2021-11-20 03:33] LABS: Urine Appearance Clear (Clear); Urine Color Dark Yellow (Yellow)
[2021-11-20 03:34] LABS: Bilirubin,Urine Large mg/dL (Negative); Blood, Urine Large mg/dL (Negative); Glucose,Urine (UA) 100 mg/dL (Negative); Ketones,Urine Negative (Negative); Nitrite,Urine Negative (Negative); Protein,Urine Trace mg/dL (Negative)
[2021-11-20 03:38] LABS: Bacteria,Urine Occasional /HPF (Few); Hyaline Casts,Urine 19 /LPF (0-3); Mucus,Urine Occasional /LPF (Occasional); RBC,Urine 107 /HPF (0-4); Squamous Epithelial Cell,Urine Occasional /HPF (0-10)
[2021-11-20] MEDS: PIPERACILLIN/TAZOBACTAM 3,375 MG in SODIUM CHLORIDE 0.9% 100 ML IV SCH (04:23)
[2021-11-20] MEDS ORDERED: SODIUM CHLORIDE 0.9% 500 ML IV ONE (05:00)
[2021-11-20 06:23] LABS: PT Patient Result 30.4 SECS (10.1-12.1)
[2021-11-20 06:34] LABS: Basophils % 0.2 % (0.0-0.8); Eosinophils % 0.7 % (0.00-10.9); Hemoglobin 9.4 GM/DL (12.0-16.0); Immature Granulocytes Absolute 0.13 #; Lymphocytes # 0.6 10*3/uL (1.4-4.0); Lymphocytes % 13.8 % (21.3-54.2); Mean Corpuscular HGB Conc 33.6 GM/DL (32-36); Mean Corpuscular Volume 102.9 FL (87-102); Monocytes # 0.2 10*3/uL (0.11-0.8); Monocytes % 3.7 % (1.7-12.7); NRBC # 0.03 10*3/uL; Neutrophils % 78.6 % (38.7-73.9); Platelet Count 103 T/CUMM (130-400); Red Blood Count 2.72 MC/CUMM (3.8-5.5); White Blood Count 4.3 T/CUMM (4-12)
[2021-11-20 06:53] LABS: Albumin 1.8 G/DL (3.4-5.0); Band Neutrophils 14 % (0-10); Calcium 8.6 MG/DL (8.5-10.1); Eosinophils 1 % (0-10); Lymphocytes 13 % (20-55); Macrocytosis Slight; Osmolality,Calculated 283.1 MOS/KG (273-304); Potassium 2.9 MMOL/L (3.5-5.1); Total Cells Counted 100; Total Protein 4.8 G/DL (6.4-8.2)
[2021-11-20 07:15] LABS: Bilirubin,Total 24.4 MG/DL (0.20-1.00)
[2021-11-20 07:52] VITALS: BP 112/67
[2021-11-20] MEDS: DOCUSATE SODIUM 100 MG CAPSULE PO SCH (08:11)
[2021-11-20] MEDS ORDERED: POTASSIUM CHLORIDE 20 MEQ TABLET PO ONE (09:00)
[2021-11-20] MEDS: FUROSEMIDE 40 MG/4 ML VIAL IV SCH (09:48)
[2021-11-21 15:41] LABS: Myeloperoxidase Antibody 0.7 U
[2021-11-22 14:46] LABS: Antinuclear Ab, S 1.4 U
[2021-11-24 09:14] LABS: c-ANCA Negative (Negative); p-ANCA Positive (Negative)
== END 2021-11-20 16:20 | disposition hospice, home (50) | DRG 813 ==
LOC: N.ED 13:00 → N.EDINP 16:56 → N.5E 18:10
PROVIDERS: ADMIT Internal Medicine; ATTEND Internal Medicine